=== PATIENT | female | born 1950 | race Caucasian/White ===

== ENCOUNTER 2016-10-19 11:47 | Emergency (ER) | payer MEDICARE ==
[~2016-10-19] VITALS: Ht 170.2 cm; Wt 105.0 kg
[2016-10-19 11:51] VITALS: BP 177/79; PULSE 69; RESP 15; TEMP 98.1; O2SAT 98
[2016-10-19] MEDS ORDERED: METO50TA PO (12:15)
[2016-10-19] MEDS ORDERED: XANA1TAB2 PO (12:15)
[2016-10-19] MEDS ORDERED: LISI-515 PO (12:15)
[2016-10-19] MEDS ORDERED: SIMV20TA PO (12:15)
[2016-10-19] MEDS ORDERED: OXYC-259 PO (12:15)
--- NOTE | 2016-10-19 12:29 | PD ---
HPI Chief Complaint: Injury Time Seen by Provider: 12:22 Travel History International Travel<30 days: No Contact w/Intl Traveler<30days: No Traveled to known affect area: No History of Present Illness HPI 66-year-old female presents to emergency Department with complaint of left hand , wrist, forearm pain after losing her balance trying to get a paper patella off of her foot and falling on Wednesday night. She denies hitting her head or loss of consciousness. Denies neck pain or back pain. Denies anticoagulants. Denies vomiting. Denies chest pain, shortness of breath and abdominal pain. Denies paresthesias, loss of sensation in the affected extremity. Reports decreased range of motion at the wrist and fingers. Has been taking an old prescription of Percocet for symptom management. Has also been icing and elevating the affected extremity. Symptoms are moderate in severity. Has no other medical complaints. Allergies to ciprofloxacin, codeine, hydrocodone. No other modifying factors or associated signs and symptoms. PFSH Past Medical History Anxiety: Yes High Cholesterol: Yes Diminished Hearing: No Hypertension: Yes Medical other: Yes (gene for hemachromatosis) Tetanus Vaccination: > 5 Years ?: Not Past Surgical History Gynecologic Surgery: Yes (vaginal polyps ) Joint Replacement: Yes (left hip, left knee) Social History Alcohol Use: Yes (daily ) Tobacco Use: No Substance Use: No Allergies-Medications (Allergen,Severity, Reaction): Coded Allergies: codeine (Verified Allergy, Intermediate, hyped up, 10/19/16) ciprofloxacin (Verified Allergy, Unknown, pain, 10/19/16) hydrocodone (Verified Allergy, Unknown, vomiting, 10/19/16) Reported Meds & Prescriptions Reported Meds & Active Scripts Active Percocet (Oxycodone-Acetaminophen) 5-325 mg Tab 1-2 Tab PO Q6H PRN Reported Oxycontin (Oxycodone HCl) 10 Mg Tab 10 Mg PO Q12HR Xanax (Alprazolam) 1 Mg Tab 1 Mg PO Q6H PRN Metoprolol Tartrate 50 Mg Tab 50 Mg PO BID Simvastatin 20 Mg Tab 20 Mg PO DAILY Lisinopril 20 Mg Tab 20 Mg PO DAILY Review of Systems Except as stated in HPI: all other systems reviewed are Neg Physical Exam Narrative GENERAL: Well-nourished, well-developed patient, in no acute distress SKIN: Warm and dry. HEAD: Atraumatic. Normocephalic. EYES: Pupils equal and round. No scleral icterus. No injection or drainage. ENT: Mucosa pink and moist. Airway patent. NECK: Trachea midline. CARDIOVASCULAR: Regular rate. RESPIRATORY: No accessory muscle use. GASTROINTESTINAL: Abdomen soft, non-tender, nondistended. MUSCULOSKELETAL: Left hand is edematous and ecchymotic to the dorsal aspect; with tenderness on palpation; left wrist is edematous, ecchymotic and with tenderness on palpation; left forearm is edematous and ecchymotic and with tenderness on palpation; all without erythema; wrist with possible deformity; fingers with sensory intact and are [place] and warm and with less than 3 second cap refill. Left upper extremity is supple and non-tense with 2+ radial pulse and sensory intact. No obvious deformities. No clubbing. No cyanosis. NEUROLOGICAL: Awake and alert. Oriented 3. No obvious cranial nerve deficits. Motor grossly within normal limits. Normal speech. PSYCHIATRIC: Appropriate mood and affect; insight and judgment normal. Data Data Last Documented VS Vital Signs Date Time Temp Pulse Resp B/P (MAP) Pulse Ox O2 Delivery O2 Flow Rate FiO2 10/19/16 11:51 98.1 69 15 177/79 (111) 98 Orders Orders Forearm (2vws) (10/19/16 12:29) Hand, Complete ([id number]) (10/19/16 12:29) Ice/Cold Pack (10/19/16 12:29) Oxycodone-Acetamin 5-325 Mg (Percocet (10/19/16 12:30) Splint Or Brace Apply/Monitor (10/19/16 14:12) Sling Cradle Arm (10/19/16 ) MDM Medical Decision Making Medical Screen Exam Complete: Yes Emergency Medical Condition: Yes Medical Record Reviewed: Yes Differential Diagnosis Hand fracture, wrist fracture, forearm fracture, sprain, contusion, fall Narrative Course 66-year-old female with left hand, wrist, forearm injury after a mechanical fall on Wednesday night. Denies hitting head or loss of consciousness. Denies neck pain or back pain. Percocet administered in the ER. Left hand and forearm x-ray ordered. 1342: Right hand and forearm x-ray concludes: Last 24 hours Impressions Radius/Ulna X-Ray 10/19/16 1229 Signed Impressions: Service Date/Time: Wednesday, October 19, 2016 12:45 - CONCLUSION: Impacted fracture distal radius. Bogdan Roca MD FACR Hand X-Ray 10/19/16 1229 Signed Impressions: Service Date/Time: Wednesday, October 19, 2016 12:42 - CONCLUSION: Impacted fracture distal radius involving radiocarpal joint. Bogdan Roca MD FACR Call placed to Dr. Newman, orthopedics. 1405: Kristian PAC of Dr. Newman and he recommended for the patient to be admitted for surgery tomorrow or give the patient the option to be splinted and to follow up outpatient for outpatient surgery. The patient chose to follow up outpatient. Sugartong splint and arm sling provided for support. Percocet prescribed for home. Instructed patient to call and make an appointment with Dr. Newman or orthopedic of [place]. Patient verbalized understanding and agreement. Instructed patient to follow up with primary care provider. Patient verbalizes understanding and agreement with treatment plan. Patient is medically cleared and stable for discharge. Discussed reasons to return to the emergency department. Patient agrees with treatment plan. The patients vital signs are stable and the patient is stable for outpatient follow-up and treatment. Patient discharged home, stable and in no acute distress. Diagnosis Primary Impression: Left wrist fracture Qualified Codes: S62.102A - Fracture of unspecified carpal bone, left wrist, initial encounter for closed fracture Referrals: Ted Newman MD Orthopaedic Surgeon Primary Care Physician Patient Instructions: General Instructions, Wrist Fracture in Adults (ED) Additional Instructions: Tylenol or ibuprofen as directed and as needed to reduce pain Rest, ice, compress, and elevate extremity to decrease pain and inflammation Wrist Splint for support; do not remove splint until it is cleared by orthopedic surgeon Avoid aggravating activity; increase activity as tolerated Follow-up with primary care provider Follow-up with orthopedic surgeon of choice or Dr. Newman's information has been provided for follow-up Return to the emergency department immediately with worsening symptoms Med/Other Pt SpecificInfo: Prescription(s) given Scripts Oxycodone-Acetaminophen (Percocet) 5-325 mg Tab 1-2 TAB PO Q6H Y for PAIN, #20 TAB 0 Refills Prov: Iza Mclaughlin 10/19/16 Disposition: 01 DISCHARGE HOME Condition: Stable Iza Mclaughlin Oct 19, 2016 12:29
[2016-10-19] MEDS ORDERED: oxyCODONE/ACETAMINOPHEN 5 MG/325 MG TAB PO ONE (12:30)
--- NOTE | 2016-10-19 12:57 | RADRPT ---
EXAM DATE/TIME: 10/19/2016 12:42 [facility] COMPARISON: No previous studies available for comparison. INDICATIONS : Left hand and wrist pain after fall two days ago. MEDICAL HISTORY : None. SURGICAL HISTORY : None. ENCOUNTER: Initial ACUITY: 2 days PAIN SCORE: 10/10 LOCATION: Left hand. FINDINGS: Impacted comminuted fracture distal radius with minimal posterior displacement. Carpus is intact. CONCLUSION: Impacted fracture distal radius involving radiocarpal joint. Bogdan Roca MD FACR on October 19, 2016 at 12:54 Board Certified Radiologist. This report was verified electronically.
--- NOTE | 2016-10-19 12:57 | RADRPT ---
EXAM DATE/TIME: 10/19/2016 12:45 [facility] COMPARISON: No previous studies available for comparison. INDICATIONS : Left arm pain after fall two days ago. MEDICAL HISTORY : None. SURGICAL HISTORY : None. ENCOUNTER: Initial ACUITY: 2 days PAIN SCORE: 10/10 LOCATION: Left forearm. FINDINGS: [place] and proximal radius are intact. Impacted fracture distal radius. CONCLUSION: Impacted fracture distal radius. Bogdan Roca MD FACR on October 19, 2016 at 12:55 Board Certified Radiologist. This report was verified electronically.
[2016-10-19] MEDS ORDERED: PERC5TAB12 PO (14:12)
[2016-10-19 14:18] VITALS: RESP 19
[2016-10-27] MEDS ORDERED: OXYC1CAP PO (14:07)
== END 2016-10-19 14:42 | disposition home or self-care (01) ==
LOC: NEPD 11:47
DX: S52.502A Unspecified fracture of the lower end of left radius, initial encounter for closed fracture (principal); F41.9 Anxiety disorder, unspecified; E78.00 Pure hypercholesterolemia, unspecified; I10 Essential (primary) hypertension; W18.30XA Fall on same level, unspecified, initial encounter; Z79.899 Other long term (current) drug therapy
CPT/HCPCS: 29125; 73090; 73130

== ENCOUNTER → 2016-10-27 | Day surgery (SDC) | payer MEDICARE ==
[~2016-10-27] VITALS: Ht 170.2 cm; Wt 101.4 kg
[~2016-10-27] MED LIST: *LABETALOL HCL 100 MG/20 ML VIAL PERIprocedural Use ONLY ONE; *morphine SULFATE 8 MG/ML PERIprocedure ONLY ONE; BUPIVACAINE HCL PF 0.5% 30 ML VIAL ONE; BUPIVACAINE/EPINEPHRINE 0.25% 50 ML VIAL ONE; CHLORHEXIDINE GLUCONATE 2 % 1 PACK (2 CLOTHS) TOPICAL PRN; CHLORHEXIDINE GLUCONATE 4% SOLN 120 ML BTL TOPICAL SCH; DO NOT ADM ANY ANTICOAGULANT DRUGS PRN; GENTAMICIN SULFATE 80 MG/2 ML VIAL ONE; INSULIN HUMAN REGULAR 1,000 UNITS/10 ML VIAL SQ PRN; LACTATED RINGER'S 1000 ML IV PRN; LIDOCAINE HCL 1% PF 5 ML AMPULE OTHER ONE; LISI-515 PO; METO50TA PO; METOPROLOL TARTRATE 25 MG TAB PO PRN; MIDAZOLAM HCL 2 MG/2 ML VIAL IV ONE; NEOMYCIN/POLYMYXIN/BACITRACIN OINT 15 GM TUBE ONE; ONDANSETRON HCL 4 MG/2 ML VIAL IV PRN; ONDANSETRON HCL 4 MG/2 ML VIAL IV PUSH ONE; OXYC-259 PO; OXYC1CAP PO; POVIDONE IODINE 5% (ANTISEPSIS KIT) 4 APPLICATIONS EACH NARE PRN; POVIDONE IODINE 7.5% SCRUB 118 ML BOTTLE TOPICAL SCH; PROPOFOL 200 MG/20 ML AMP IV ONE; ROCURONIUM INJ 50 MG/5 ML SYRINGE IV PUSH ONE; SODIUM CHLORID 0.9% 500 ML IV PRN; SODIUM CHLORIDE 0.9% FLUSH 10 ML FLUSH IV FLUSH PRN; SODIUM CHLORIDE 0.9% FLUSH 10 ML FLUSH IV FLUSH SCH; VANCOMYCIN 1000 MG/NS 250 ML (for <70 kg) IV SCH; XANA1TAB2 PO; ceFAZolin 2 GM PREMIX 50 ML IV SCH; oxyCODONE/ACETAMINOPHEN 5 MG/325 MG TAB PO PRN
--- NOTE | 2016-10-27 14:03 | PD.OP ---
cc: Viktor Slater MD Operative Report Date of Surgery: Oct 27, 2016 Preoperative Diagnosis: Left distal radius fracture, three-part intra-articular comminuted Postoperative Diagnosis: Same Procedure: Left distal radius fracture open reduction internal fixation of three-part intra -articular Anesthesia: Gen. Surgeon: Viktor Slater Cook Larder(s): CURTIS Staley The surgical procedure was assisted by my Advanced Registered Nurse Practitioner. My CITY WELLNESS COORDINATOR presence was necessary throughout this case for the manipulation and positioning of the surgical extremity. My CITY WELLNESS COORDINATOR was assisting me throughout the duration of this procedure. The skill set of an Advance Registered Nurse Practitioner was medically necessary to complete this procedure. During the surgical case, the technician automatic was working at the back table and the Advance Registered Nurse Practitioner was directly assisting me. Operation and Findings: Tourniquet time: 34 minutes at 250 mmHg of pressure Estimated blood loss: Minimal cc The patient received intravenous vancomycin and Ancef. After the appropriate anesthesia was administered, the patient's arm was prepped and draped in the usual sterile fashion. Local anesthetic was given, and the arm was exsanguinated. The tourniquet was raised to 250 mmHg of pressure. We made a standard incision over the volar aspect of the forearm. We then dissected through the flexor carpi radialis sub- sheath. The pronator quadratus was reflected. We now visualized the distal radius fracture very well. There was significant comminution noted about the metaphysis along with significant displacement of the joint surface with intra- articular comminution as well. The fracture was anatomically reduced both visually and via fluoroscopy. We provisionally held the fracture reduced and then applied a Synthes precontoured distal radius plate into the appropriate position. The plate was secured to the distal radius first with the sliding screw hole. This was then followed by locking screws distally and proximally. We used 7 screws distally. We took final fluoroscopic imaging of the wrist. We found no intra-articular penetration of the screws. The patient had full range of motion of the wrist with no crepitus. The tourniquet was released and hemostasis was achieved. The patient had a 2+ radial pulse. We irrigated the incision thoroughly. We then closed skin with 2 -0 Vicryl followed by 3-0 nylon. The arm was dressed and a volar splint was applied. The postoperative plan is to start delayed range of motion of the wrist. Viktor Slater MD Oct 27, 2016 14:03
[2016-10-27 16:40] VITALS: BP 161/64; PULSE 78; RESP 20; TEMP 98.8; O2SAT 95
--- NOTE | 2016-10-28 13:31 | RADRPT ---
EXAM DATE/TIME: 10/27/2016 13:53 [facility] COMPARISON: No previous studies available for comparison. INDICATIONS : Left wrist fracture, ORIF done in operating room. MEDICAL HISTORY : None. SURGICAL HISTORY : None. ENCOUNTER: Initial ACUITY: 1 day PAIN SCORE: Non-responsive. LOCATION: Left Wrist. FINDINGS: Plate with screws is seen bridging the distal radius fracture. Alignment is anatomic. CONCLUSION: Abdominal alignment. Bogdan Roca MD FACR on October 28, 2016 at 13:29 Board Certified Radiologist. This report was verified electronically.
== END | disposition home or self-care (01) ==
LOC: HSDC 10:02
PROVIDERS: ATTEND Orthopaedic Surgery
DX: S52.572A Other intraarticular fracture of lower end of left radius, initial encounter for closed fracture (principal); W01.0XXA Fall on same level from slipping, tripping and stumbling without subsequent striking against object, initial encounter; Y93.E5 Activity, floor mopping and cleaning; Y92.009 Unspecified place in unspecified non-institutional (private) residence as the place of occurrence of the external cause; I10 Essential (primary) hypertension; E78.5 Hyperlipidemia, unspecified; G47.30 Sleep apnea, unspecified; F41.9 Anxiety disorder, unspecified; E66.9 Obesity, unspecified; Z68.35 Body mass index [BMI] 35.0-35.9, adult; Z79.891 Long term (current) use of opiate analgesic; Z79.899 Other long term (current) drug therapy
CPT/HCPCS: 01830; 25609; 73100; 76000; C1713; J0690; J1580; J2250; J2270; J2405; J3010; J3370; J7050; J7120